=== PATIENT | female | born 1960 | race Caucasian/White ===

== ENCOUNTER → 2017-01-19 | Outpatient (CLI) | payer OTHER | LOC: FIMAGING 08:42 | DX: Z12.31 Encounter for screening mammogram for malignant neoplasm of breast (principal) | CPT/HCPCS: G0202 ==

== ENCOUNTER → 2017-06-25 | Outpatient (CLI) | payer OTHER | LOC: CIMAGING 15:07 | PROVIDERS: ATTEND Internal Medicine | DX: M54.2 Cervicalgia (principal); R93.8 Abnormal findings on diagnostic imaging of other specified body structures | CPT/HCPCS: 76536-PO ==

== ENCOUNTER 2018-03-23 09:36 | Emergency (ER) | payer OTHER ==
--- NOTE | 2018-03-23 09:53 | CPEKG ---
Heart Rate: 94 RR Interval: 638 P-R Interval: 148 QRSD Interval: 94 QT Interval: 340 QTC Interval: 426 P Aurora: 37 QRS Aurora: -70 T Wave Aurora: -11 EKG Severity - BORDERLINE ECG - EKG Impression: SINUS RHYTHM EKG Impression: MARKEDLY POSTERIOR QRS AXIS EKG Impression: BORDERLINE T ABNORMALITIES, DIFFUSE LEADS Electronically Signed By: Navdeep Jhaveri 23-Mar-2018 13:51:28
[2018-03-23] MEDS ORDERED: IPRATROPIUM/ALBUTEROL 3 ML DEYVIAL IH ONE (09:55)
--- NOTE | 2018-03-23 09:59 | EDPHY ---
General - History Smoking Status: Never smoked Time Seen by Provider: 03/23/18 09:56 Narrative: CHIEF COMPLAINT: Cough, shortness of breath, chest pain HISTORY OF PRESENT ILLNESS: Patient presents with complaints of cough, shortness of breath, vomiting and diarrhea. Symptoms started Wednesday night while in [place]. They started abruptly while walking. The cough is somewhat productive at times. Other times nonproductive. It is described as a painful cough with some shortness of breath and "feeling like I can't take a deep breath."Symptoms do not radiate. Minimally worse with exertion. Worse more so when she lays supine. Improves when she is up and minimally with [id number] medications. She does cough to the point that she vomits and has diarrhea but has no abdominal pain. No neck pain or stiffness. Subjective fever. No rash. She recently return from [place] on Wednesday from a one-week trip. No other associated complaints or modifying factors. REVIEW OF SYSTEMS: Ten systems reviewed and are negative unless otherwise noted in the HPI PCP: Dr. Dominic Chapa SPECIALISTS: None PAST MEDICAL HISTORY: Hirsutism. Cardiac stress test greater than 5 years ago PAST SURGICAL HISTORY: Hysterectomy, cholecystectomy SOCIAL HISTORY: Never smoker. No drugs or alcohol use per FAMILY HISTORY: Noncontributory. No 1st degree coronary artery disease diagnoses. EXAMINATION General Appearance: Alert, no distress Head: normocephalic, atraumatic Eyes: Pupils equal and round, no conjunctival pallor or injection ENT, Mouth: Mucous membranes moist Neck: Normal inspection, supple, non-tender Respiratory: Lungs are clear to auscultation. No wheezing. Mild rhonchi on the right upper lobe. No retractions or distress. Cardiovascular: Regular rate and rhythm. No murmur. Gastrointestinal: Abdomen is soft and nontender Back: non-tender, no bony abnormalities Neurological: A&O, nonfocal, normal gait Skin: Warm and dry, no rash. No petechiae or purpura Extremities: Nontender, no pedal edema Psychiatric: Mood and affect normal DIFFERENTIAL DIAGNOSES: Including but not limited to viral bronchitis, bacterial bronchitis, pneumonia, PE, pleurisy, pericarditis, ACS MDM: 9:55 a.m. Likely acute bronchitis, less likely PE and/or acute coronary syndrome. Patient has exam history this suggest bronchitis with no definite auscultation that suggest pneumonia. Her vital signs are within normal limits. She does have a pleuritic inspiratory pain as, with recent flight from [place]. Thus I have ordered a D-dimer. I do feel that PE is very unlikely. She has no tachycardia and tachypnea or hypoxemia. She is in no acute distress. 10:10 a.m. Chest x-ray has been read by radiologist as a focal infiltrate in the inferior aspect of the right upper lobe. I have reviewed the x-ray myself. Laboratory studies are pending. 11:00 a.m. Patient re-evaluated. Some improvement with treatment thus far. Laboratory studies do reveal a mildly elevated D-dimer. I suspect this is likely due to her pneumonia, but after further discussion with the patient and noticing that she does have some mild hypoxemia, I will proceed with CT angiography of the chest to rule out PE. 11:20 a.m. Notified by property technician. Patient reports and iodine allergy with mild reaction including rash hives that responded to oral Benadryl. She is comfortable with proceeding with a CT scan and she has pretreated, as am I. I have ordered IV Benadryl and Solu-Medrol. I have also ordered IV fluid and IV Zithromax 1st dose. 11:40 a.m. Patient just received IV Solu-Medrol IV Benadryl. 12:45 p.m. Patient is currently being taken to CT scan. We will monitor her post scan as well for any possible reaction. 1:35 p.m. Notified by radiologist Dr. Ríos. CT angiography of the chest reveals no evidence of PE. The right upper lobe pneumonia as visualized. There is an incidental note of a small left upper lobe nodule. Recommendation is follow-up at 6 months and 1 year. 1:50 p.m. Patient reevaluated. She remains comfortable. No urticaria or evidence of reaction to the IV contrast. I discussed the negative CT scan findings. I discussed the incidental nodule and the recommendation for follow up with primary care doctor. We discuss antibiotic therapy, albuterol therapy, anti- inflammatories and antitussives. We also discussed ED precautions for worsening symptoms, fever, difficulty breathing. Additionally, she has a pulse oximeter at home that she will check. I do feel she is stable for discharge home with follow up with primary care physician. EKG interpretation: Dr. Jhaveri No ischemia. [place] heart score is 1 SUPERVISION: Patient was independently examined, but I discussed the case with my secondary supervising physician Dr. Jhaveri (Dominguez Thompson) Medical Decision Makin:00 I evaluated this patient at the request of MARLON Gupta. I concur with his examination and plan of treatment. (Navdeep Jhaveri) - Objective Vital Signs: Initial Vital Signs Temperature (C) 98.4 F 03/23/18 09:40 Heart Rate 99 03/23/18 09:40 Respiratory Rate 18 03/23/18 09:40 Blood Pressure 139/100 H 03/23/18 09:40 O2 Sat (%) 95 03/23/18 09:40 O2 Delivery Mode Room Air Allergies/Adverse Reactions: iodine Allergy (Verified 03/23/18 09:40) prochlorperazine edisylate [From Compazine] Allergy (Verified 03/23/18 09:40) prochlorperazine maleate [From Compazine] Allergy (Verified 03/23/18 09:40) Home Medications: Medication Instructions Recorded Lexapro 02/08/15 Spironolactone 02/08/15 AMOXICILLIN 03/23/18 Albuterol [Proventil Inhaler HFA 1 - 2 puffs IH Q4H PRN #1 mdi 03/23/18 (*)] Azithromycin [Zithromax] 250 mg PO DAILY #4 tab 03/23/18 Benzonatate [Tessalon Pearles (RX)] 100 mg PO Q8 PRN #15 cap 03/23/18 Laboratory Results: Laboratory Results 03/23/18 09:45 03/23/18 09:45 Medications Given: Discontinued Medications Albuterol/Ipratropium (Duoneb) 3 ml IH EDNOW ONE Stop: 03/23/18 09:56 Last Admin: 03/23/18 10:18 Dose: 3 ml Diphenhydramine HCl (Benadryl Injection) 50 mg IVP EDNOW ONE Stop: 03/23/18 11:30 Last Admin: 03/23/18 11:36 Dose: 50 mg Azithromycin 500 mg/ Sodium (Chloride) 255 mls @ 255 mls/hr IV EDNOW ONE PRN Reason: Protocol Stop: 03/23/18 12:35 Last Admin: 03/23/18 12:20 Dose: 255 mls Sodium Chloride (Ns) 1,000 mls @ 0 mls/hr IV EDNOW ONE; Wide Open PRN Reason: Protocol Stop: 03/23/18 11:37 Last Admin: 03/23/18 11:55 Dose: 1,000 mls Methylprednisolone Sodium Succinate (Solu-Medrol) 125 mg IVP EDNOW ONE Stop: 03/23/18 11:30 Last Admin: 03/23/18 11:40 Dose: 125 mg Departure - Departure Disposition: Home, Routine, Self-Care Clinical Impression: Pulmonary nodule seen on imaging study Right upper lobe pneumonia Qualifiers: Pneumonia type: due to unspecified organism Qualified Code(s): J18.1 - Lobar pneumonia, unspecified organism Condition: Good Instructions: Benzonatate (By mouth), Albuterol (By breathing), Azithromycin ( By mouth), Community Acquired Pneumonia (ED), Pulmonary Nodules (ED) Additional Instructions: 1. Antibiotics as prescribed to completion. First dose tomorrow, 2. Albuterol inhaler as prescribed as needed for wheezing or shortness of breath 3. Cough medication as prescribed as needed 4. Rzli-mxp-defdofu anti-inflammatories, ibuprofen 400 mg every 6-8 hours as needed 5. Contact primary care physician to be seen later this week for recheck 6. Per return to emergency department for any worsening cough, shortness of breath, fever or any chest pain Referrals: Dominic Chapa MD [Primary Care Provider] - As per Instructions Prescriptions: Albuterol [Proventil Inhaler HFA (*)] 1 - 2 puffs IH Q4H PRN #1 mdi PRN Reason: Short Of Breath/Dyspnea Azithromycin [Zithromax] 250 mg PO DAILY #4 tab Benzonatate [Tessalon Pearles (RX)] 100 mg PO Q8 PRN #15 cap PRN Reason: Cough, Mild
[2018-03-23 10:26] LABS: PLATELET COUNT 337 10^3/uL (150-400)
[2018-03-23] MEDS ORDERED: IOPAMIDOL (ISOVUE 370) 100 ML BTL IV ONE (11:12)
[2018-03-23] MEDS ORDERED: methylPREDNISolone SOD SUCC 125 MG/2 ML VIAL IVP ONE (11:29)
[2018-03-23] MEDS ORDERED: AZITHROMYCIN IV 500 MG in NS 250 ML IV ONE (11:36)
[2018-03-23] MEDS ORDERED: NS 1,000 ML IV ONE (11:36)
[2018-03-23 14:24] VITALS: BP 117/72
== END 2018-03-23 14:31 | disposition home or self-care (01) ==
DX: J18.1 Lobar pneumonia, unspecified organism (principal); E86.9 Volume depletion, unspecified; R91.1 Solitary pulmonary nodule
CPT/HCPCS: 96365; J0456; J1200; J2930; Q9967

== ENCOUNTER → 2018-04-07 | Outpatient (CLI) | payer OTHER | LOC: BMCIMAGING 10:04 | PROVIDERS: ATTEND Internal Medicine | DX: R05 Cough (principal); J98.09 Other diseases of bronchus, not elsewhere classified ==

== ENCOUNTER → 2018-04-18 | Outpatient (CLI) | payer OTHER | LOC: FIMAGING 10:45 | PROVIDERS: ATTEND Obstetrics & Gynecology | DX: Z12.31 Encounter for screening mammogram for malignant neoplasm of breast (principal) ==

== ENCOUNTER → 2019-04-24 | Outpatient (CLI) | payer OTHER | LOC: FIMAGING 08:09 ==